=== PATIENT | female | born 1975 | race Caucasian/White ===

== ENCOUNTER 2016-05-14 16:14 | Emergency (ER) | payer SELFPAY ==
--- NOTE | ~2016-05-14 | CR72 ---
[facility] A Service of [facility] & [facility] RADIOLOGY TEXT RESULTS PATIENT: DARLENE VALDEZ LOCATION: SED : 77 UNIT #: [id number] AGE: [address]: Jose J Sorensen MD SEX: F ORDER DR: [id number] [address] [address] [id number] E MR#: [id number] Acc #: [id number] NAME: DARLENE VALDEZ. : 1975 SEX: F STUDY DATE/TIME: 05/14/2016 15:22 UNIT: SED ROOM: STUDY DESCRIPTION: CR Chest Single View Portable Attending Physician: Jose J Sorensen M.D. Ordering Physician: Jose J Sorensen M.D. MEDICAL IMAGING REPORT This report is preliminary unless electronic signature is present. EXAM Portable chest 05/14/2016 HISTORY Chest pain today. COMPARISON STUDIES 09/13/2012 A portable view of the chest was obtained. FINDINGS The heart size and vascularity are normal. The lungs are clear. The bones are unremarkable. IMPRESSION No active disease. Dictated by... Lambert Whipple M.D. THIS IS AN ELECTRONICALLY VERIFIED REPORT Lambert Whipple M.D. at 05/15/2016 10:07 AM Omar TD: 05/14/2016 18:29 JOB #: [id number] MEDICAL IMAGING REPORT
--- NOTE | ~2016-05-14 | EKG ---
PATIENT: DARLENE VALDEZ UNIT #: [id number] Ventricular Rate: 94 BPM Atrial Rate: 94 BPM P-R Interval: 176 ms QRS Duration: 88 ms Q-T Interval: 376 ms QTC Calculation(Bezet): 470 ms P Adams: 49 degrees Calculated R Adams: 14 degrees Calculated T Adams: 34 degrees Diagnosis Line: Normal sinus rhythm Diagnosis Line: Normal ECG Diagnosis Line: When compared with ECG of 24-NOV-2013 19:24, Diagnosis Line: No significant change was found Diagnosis Line: Confirmed by SARA VERDE MD ([id number]) on Diagnosis Line: 06/29/2016 4:05:37 PM INTERPRETING MD: FANG
[2016-05-14 15:49] LABS: BASOPHIL% 0.7 % (0-2.5); EOSINOPHIL# 0.3 X10e3 (0-0.7); EOSINOPHIL% 4.2 % (0.0-7.0); HEMATOCRIT 43.1 % (35.0-45.0); HEMOGLOBIN 14.6 gm/dL (12.0-16.0); LYMPHOCYTE# 1.7 X10e3 (1.0-3.5); LYMPHOCYTE% 24.4 % (17.0-45.0); MEAN CORPUSCULAR HEMOGLOBIN 31.9 PG (28-34); MEAN CORPUSCULAR HGB CONC 33.9 g/dL (30-36); MEAN PLATELET VOLUME 7.3 FL (6.5-11.5); MONOCYTE# 0.6 X10e3 (0-1.0); NEUTROPHIL# 4.4 X10e3 (1.5-7.1); NEUTROPHIL% 62.7 % (40-75); PLATELET COUNT 304 X10e3 (140-420); RED BLOOD COUNT 4.58 X10e (3.90-5.30); RED CELL DISTRIBUTION WIDTH 12.8 % (11.0-15.5); WHITE BLOOD COUNT 7.1 X10e3 (4.0-10.5)
[2016-05-14 15:51] LABS: DIFF IND NO
[2016-05-14 15:57] LABS: POC - CKMB <1.0 ng/mL (0.0-7.9); POC - MYOGLOBIN 36.3 ng/mL (0.0-169.0); POC - TROPONIN <0.05 ng/mL (<=0.05)
[2016-05-14 16:08] LABS: ALBUMIN SERUM 4.3 g/dL (3.5-5.0); ALKALINE PHOSPHATASE 81 U/L (32-92); ALT (SGPT) 19 U/L (10-40); AST (SGOT) 21 U/L (10-42); BILIRUBIN,TOTAL 0.6 mg/dL (0.2-2.0); BLOOD UREA NITROGEN 11 mg/dL (9-23); BUN/CREATININE RATIO 18.33; CALCIUM SERUM 8.5 mg/dL (8.4-10.2); CARBON DIOXIDE 26 mmol/L (22-31); CHLORIDE 98 mmol/L (100-111); CREATININE SERUM 0.6 mg/dL (0.6-1.4); GLOM FILT RATE Estimated ABOVE60 mL/min (>60); GLUCOSE FASTING 85 mg/dL (70-110); POTASSIUM 3.5 mmol/L (3.5-5.1); PROTEIN TOTAL SERUM 7.3 g/dL (6.0-8.3); SODIUM 130 mmol/L (135-145)
[~2016-05-14 16:14] MED LIST: AUGMENTIN PO; CELEXA PO; FLEXERIL10 MG PO; MULTI-VITAMIN1 TAB PO; NICOTINE T1 PATCH .2 TOP; NO MEDICATIONS; PLAQUENIL200 MG; PRENATAL1 TA1 PO; SEROQUEL PO; TYLENOL #3 PO; VIBRAMYCIN100 M1 PO; VICODIN 5/500 T1 TAB PO; WELLBUTRIN SR150 M1
[2016-05-14 16:24] LABS: URINE SOURCE CLEAN CATCH
[2016-05-14 16:25] LABS: URINE APPEARANCE CLEAR; URINE BILIRUBIN NEG (NEG); URINE BLOOD TRACE-INTACT (NEG); URINE COLOR YELLOW; URINE GLUCOSE NEG (NORM); URINE KETONE NEG (NEG); URINE LEUKOCYTE ESTERASE 3+ (NEG); URINE NITRATE NEG (NEG); URINE PROTEIN NEG (NEG); URINE SPECIFIC GRAVITY <=1.005 (1.003-1.035); URINE UROBILINOGEN 0.2 MG/DL (NORM)
[2016-05-14 16:27] LABS: MICRO INDICATED? YES
[2016-05-14 16:36] LABS: AMPHETAMINE POS (NEG); BARBITURATES NEG (NEG); BENZODIAZEPINES NEG (NEG); COCAINE NEG (NEG); MARIJUANA NEG (NEG); OPIATES NEG (NEG); TRICYCLIC ANTIDEPRESSANTS NEG (NEG); U METHADONE NEG (NEG)
[2016-05-14 16:40] LABS: CULTURE INDICATED? YES; URINE BACTERIA 1+ (NEG); URINE RBC 0-2 /[HPF] (0-2); URINE SQUAMOUS EPITHELIAL CELL MODERATE /[HPF]
[2016-05-14 18:03] LABS: POC - CKMB <1.0 ng/mL (0.0-7.9)
[2016-05-14 18:04] LABS: POC - MYOGLOBIN 34.9 ng/mL (0.0-169.0); POC - TROPONIN <0.05 ng/mL (<=0.05)
== END 2016-05-14 18:18 | disposition home or self-care (01) ==
LOC: SED 16:14
PROVIDERS: Emergency Medicine
DX: R07.89 Other chest pain (principal); F41.9 Anxiety disorder, unspecified; F19.10 Other psychoactive substance abuse, uncomplicated; F17.200 Nicotine dependence, unspecified, uncomplicated
CPT/HCPCS: 36415; 71010; 80053; 80307; 81003; 82553; 83874; 84484; 84703; 85025; 87086; 93005; 96361; 96374; 99284; J2405